=== PATIENT | female | born 1945 | race Caucasian/White ===

== ENCOUNTER → 2023-12-10 06:29 | Day surgery (SDC) | payer MEDICARE, OTHER, SELFPAY | LOC: GI 06:29 | PROVIDERS: ATTENDING PHYSICIAN Specialist; FAMILY PHYSICIAN Internal Medicine | DX: K22.2 Esophageal obstruction (principal); K22.89 Other specified disease of esophagus; R13.10 Dysphagia, unspecified | CPT/HCPCS: 43249; 43239; 88305 ==